=== PATIENT | female | born 1990 | race Two or more races ===

== ENCOUNTER 2017-01-11 14:06 | Emergency (ER) | payer MEDICAID ==
[~2017-01-11] VITALS: Ht 149.9 cm; Wt 49.0 kg
[~2017-01-11 14:06] MED LIST: ALBUTEROL SULF8.5 GM INH; AMOXICILLI200 MG/5 M PO; AZITHROMYCIN250 MG ORAL; CHERATUSSIN AC118 ML PO; IBUPROFEN600 MG ORAL; KEFLEX500 MG ORAL; NITROFURANTOIN100 M2 ORAL; NKM; OCUFLOX5 ML RIGHT EYE
[2017-01-11] MEDS ORDERED: Ketorolac 60mg Inj IM ONE (15:00)
--- NOTE | 2017-01-11 15:00 | Emergency Room Report ---
History of Present Illness General Chief Complaint: Headache Source: Patient Present Illness HPI 26 y/o female c/o URI sxs x 2 days. Assoc sxs include headache, nasal congestion , rhinorrhea w/ post nasal drip, feeling feverish, nausea w/o vomiting, cough and bodyaches. States they've taken 400mg ibuprofen last taken 6 hours ago w/o relief of symptoms. Patient states that he has muscle tension and the upper shoulders but causes pain in the left side of her neck that radiates to the left side of her head and feels better with massage and feels that she stretching it when she turns her head to the right side. Denies any chronic illness, diarrhea, photophobia, phonophobia, nuchal rigidity, CP, SOB, or rashes. Allergies: Coded Allergies: No Known Allergies (Unverified , 06/05/15) Patient History Past Medical History: see triage record Past Surgical History: none Pertinent Family History: none Last Menstrual Period: 12/11/16 Now: No : 1 Para: 1 Immunizations: UTD Reviewed Nursing Documentation: PMH: Agreed, PSxH: Agreed Review of Systems All Other Systems: negative except mentioned in HPI Physical Exam Vital Signs Date Time Temp Pulse Resp B/P Pulse Ox O2 Delivery O2 Flow Rate FiO2 01/11/17 14:30 98.8 96 18 111/74 97 Room Air Sp02 EP Interpretation: reviewed, normal General Appearance: no apparent distress, alert, GCS 15, non-toxic Head: normocephalic, atraumatic Eyes: bilateral eye PERRL, bilateral eye normal inspection ENT: hearing grossly normal, normal pharynx, no angioedema, normal voice, TMs + canals normal, nasal congestion Neck: full range of motion, supple/symm/no masses Respiratory: chest non-tender, lungs clear, normal breath sounds, speaking full sentences Cardiovascular #1: regular rate, rhythm, no edema Gastrointestinal: normal bowel sounds, non tender, soft, non-distended, no guarding, no rebound Rectal: deferred Genitourinary: normal inspection, no CVA tenderness Musculoskeletal: back normal, gait/station normal, normal range of motion, non- tender Neurologic: alert, oriented x3, responsive, motor strength/tone normal, sensory intact, speech normal Psychiatric: judgement/insight normal, memory normal, mood/affect normal, no suicidal/homicidal ideation Skin: normal color, no rash, warm/dry, well hydrated Lymphatic: no adenopathy Medical Decision Making PA Attestation Dr. Mena is my supervising physician with whom patient management has been discussed with. Diagnostic Impression: Primary Impression: Viral syndrome Additional Impression: Tension headache ER Course Pt. presents to the ED c/o of cough and congestion and headache Ddx considered but are not limited to bronchitis, pneumonia, viral upper respiratory tract infection, migraine, subarachnoid hemorrhage, meningitis Vital signs: are WNL, pt. is afebrile H&PE are most consistent with viral upper respiratory tract infection with tension headache ORDERS: none required at this time, the diagnosis is clinical ED INTERVENTIONS: None required at this time. DISCHARGE: At this time pt. is stable for d/c to home. Will provide printed patient care instructions, and any necessary prescriptions. Care plan and follow up instructions have been discussed with the patient prior to discharge. Last Vital Signs Date Time Temp Pulse Resp B/P Pulse Ox O2 Delivery O2 Flow Rate FiO2 01/11/17 14:30 98.8 96 18 111/74 97 Room Air Status: improved Disposition: HOME, SELF-CARE Condition: Improved Scripts Ondansetron Odt* (ZOFRAN ODT*) 4 Mg Tab.rapdis 4 MG ORAL Q6H Y for Nausea & Vomiting, #20 TAB Prov: SABRY,TAMEEM P.A. 01/11/17 Cetirizine Hcl* (ZYRTEC*) 10 Mg Tablet 10 MG ORAL DAILY, #14 TAB 0 Refills Prov: SABRY,TAMEEM P.A. 01/11/17 Fluticasone Propionate (Flonase Allergy Relief) 9.9 Ml [place].susp 2 SPRAYS NS DAILY for 7 Days, #10 ML Prov: SABRY,TAMEEM P.A. 01/11/17 Naproxen* (NAPROXEN*) 500 Mg Tablet 500 MG ORAL TWICE A DAY, #20 TAB Prov: SABRY,TAMEEM P.A. 01/11/17 Patient Instructions: Tension Headache, Viral Respiratory Infection Additional Instructions: Patient advised to use ibuprofen and tylenol as needed. Take as directed. Take medication as directed. Advised patient to use salt water gargle PRN. Advised patient to use chloraseptic as needed for throat pain in addition to APAP Q4H. Patient advised they can take Ibuprofen and Tylenol Q6H together for fever control as well. Educated patient on rhinitis and encouraged patient to use OTC nasal decongestants, nasal irrigation / saline sprays, and use of nasal suction such as NoseFrida. Educated patient on the benefits of the various OTC medications available (ie. H1 blockers, decongestants, nasal steroids, etc.). If sxs worsen or don't improve, please return sooner. Go to the ER if you develop SOB, CP, Rash, photophobia, neck pain, throat swelling occur, go to the ER immediately. Advised patient to go to the ER immediately if you experience a headache that is sudden and becomes severe within a few seconds or minutes, or that could be described as "the worst headache of your life", or if headache is severe and occurs with a fever or stiff neck, occurs with a seizure, personality changes, confusion, or passing out, begins quickly after strenuous exercise or minor injury, or if headache is new and occurs with weakness, numbness, or difficulty seeing. While migraine headaches can sometimes cause these symptoms, you should be evaluated urgently the first time these symptoms appear. Return sooner if sxs worsen or do not improve. CRESCENCIO HERNANDEZ Jan 11, 2017 15:00
[2017-01-11] MEDS ORDERED: FLONASE ALLERG9.9 ML NS (15:03)
[2017-01-11] MEDS ORDERED: NAPROXEN500 M2 ORAL (15:03)
[2017-01-11] MEDS ORDERED: ZOFRAN ODT4 MG ORAL (15:03)
[2017-01-11] MEDS ORDERED: ZYRTEC10 MG ORAL (15:03)
[2017-01-11 15:19] VITALS: BP 114/75
[2017-01-11 15:20] VITALS: BP 111/74
== END 2017-01-11 15:23 | disposition home or self-care (01) ==
LOC: EMR 14:57
DX: B34.9 Viral infection, unspecified (principal); G44.209 Tension-type headache, unspecified, not intractable
CPT/HCPCS: 96372; 99284

== ENCOUNTER 2017-03-30 11:02 | Emergency (ER) | payer MEDICAID ==
[~2017-03-30] VITALS: Ht 149.9 cm; Wt 48.1 kg
[~2017-03-30 11:02] MED LIST changes: +FLONASE ALLERG9.9 ML NS; +NAPROXEN500 M2 ORAL; +ZOFRAN ODT4 MG ORAL; +ZYRTEC10 MG ORAL
[2017-03-30 11:16] VITALS: BP 124/77
--- NOTE | 2017-03-30 12:02 | Diagnostic Imaging Report ---
Indications: Right wrist pain Technique: 3 views of the right wrist. Findings: Comparison: None. No fracture, dislocation, lytic destruction, periosteal reaction, surrounding soft tissue swelling, or other acute changes are demonstrated. No deformity, alignment abnormality, arthritic change, soft tissue calcification, or other chronic changes are demonstrated. IMPRESSION: Negative right wrist series.
[2017-03-30] MEDS ORDERED: IBUPROFEN600 MG ORAL (12:12)
[2017-03-30 12:20] VITALS: BP 124/77
--- NOTE | 2017-03-30 16:38 | Emergency Room Report ---
History of Present Illness General Chief Complaint: Upper Extremity Injury Source: Patient Present Illness HPI The patient is a 26-year-old presenting for right thumb pain which began 3 weeks prior. Pain is described as a 4/10 dull ache and does not radiate from base of thumb. It is worse with movement. Pain does not radiate. She denies any known injury to the area. 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 She denies any numbness or tingling. She denies any other symptoms including N, V, F, chills Allergies: Coded Allergies: No Known Allergies (Unverified , 06/05/15) Patient History Past Medical History: see triage record Pertinent Family History: none Last Menstrual Period: last month Now: No Reviewed Nursing Documentation: PMH: Agreed, PSxH: Agreed Nursing Documentation-PMH Past Medical History: No Stated History Review of Systems All Other Systems: negative except mentioned in HPI Physical Exam Vital Signs Date Time Temp Pulse Resp B/P Pulse Ox O2 Delivery O2 Flow Rate FiO2 03/30/17 11:16 98.1 74 18 124/77 98 Room Air Sp02 EP Interpretation: reviewed, normal General Appearance: no apparent distress, alert, GCS 15, non-toxic Head: normocephalic, atraumatic Eyes: bilateral eye PERRL, bilateral eye normal inspection ENT: hearing grossly normal, normal pharynx, no angioedema, normal voice Musculoskeletal: normal range of motion, swelling - 1+, tender - TTP over the base of the R thumb Neurologic: alert, oriented x3, responsive, motor strength/tone normal, sensory intact, speech normal Psychiatric: judgement/insight normal, memory normal, mood/affect normal, no suicidal/homicidal ideation Skin: normal color, no rash, warm/dry, well hydrated Lymphatic: no adenopathy Procedures Splinting Splinting : Consent: Verbal Location: R hand Pre-Made Type: velcro Splint: thumb spica Pre-Proc Neuro Vasc Exam: normal Post-Proc Neuro Vasc Exam: normal Patient Tolerated: Well Complications: None Medical Decision Making PA Attestation Dr. Hernandez is my supervising physician. Patient management was discussed with my supervising physician Diagnostic Impression: Primary Impression: Sprain of right thumb Qualified Codes: S63.601A - Unspecified sprain of right thumb, initial encounter ER Course The patient is a 26-year-old presenting for right thumb pain which began 3 weeks prior. Ddx considered include but not limited to sprain/strain, fracture, contusion Physical exam: vitals WNL. NAD Right hand: There is tenderness and slight edema to the base of the right thumb. No ecchymosis. Full active range of motion. X-ray of the right hand is unremarkable. Thumb spica is placed. She'll be discharged home with the ER precautions and will follow up with PMD Other X-Ray Diagnostic Results Other X-Ray Diagnostic Results : X-Ray Ordered: R hand Date: March 30, 2017 EP Interpretation: Yes Findings: no fractures, no dislocation, no soft tissue swelling Number of Views: 3 PA Scribe Text I am acting as scribe for my supervising physician. My supervising physician's interpretation of the R hand xrays are there are no fractures, dislocations or soft tissue swelling. Last Vital Signs Date Time Temp Pulse Resp B/P Pulse Ox O2 Delivery O2 Flow Rate FiO2 03/30/17 12:20 98.1 18 124/77 98 Room Air 03/30/17 11:16 74 Status: improved Disposition: HOME, SELF-CARE Condition: Improved Scripts Ibuprofen* (MOTRIN*) 600 Mg Tablet 600 MG ORAL Q6H Y for For Pain, #30 TAB Prov: QUINCY HEREDIA 03/30/17 Patient Instructions: Thumb Sprain Additional Instructions: I discussed my findings with the patient. All questions and concerns have been answered. Treatment and medication compliance have been addressed. I advised the patient that they need to follow up with PMD in 3-5 days. Return to ED if pain remains or worsens, numbness or tingling occurs, new rash is noticed, fever is noticed, or if needed for any reason. Patient verbalized understanding of discharge instructions. QUINCY HEREDIA March 30, 2017 16:38
== END 2017-03-30 12:20 | disposition home or self-care (01) ==
LOC: EMR 12:02
DX: S63.601A Unspecified sprain of right thumb, initial encounter (principal); X50.3XXA Overexertion from repetitive movements, initial encounter; Y93.9 Activity, unspecified; Y99.0 Civilian activity done for income or pay
CPT/HCPCS: 29280; 99283

== ENCOUNTER 2018-07-17 12:13 | Emergency (ER) | payer MEDICAID ==
[~2018-07-17] VITALS: Ht 149.9 cm; Wt 46.7 kg
--- NOTE | 2018-07-17 12:51 | Emergency Room Report ---
History of Present Illness General Chief Complaint: Skin Rash/Abscess Source: Patient Present Illness HPI patient is a 27-year-old female with no significant past medical history here complaining of fever days of pruritic rash on her lower extremities and 1 pruritic and painful warm to touch rash on the right upper extremity after staying over at her 's house. Denies being bit by spiders or any other insects. 3 out of 10 denies fevers/chills denies tingling and numbness. His pain radiation Knee rcro-gvj-ywzqacv pain medication or medication for allergies. Denies SOB, chest pain, dizziness, headache, and all other associates symptoms. Denies anyone else presenting with the same symptoms at home Allergies: Coded Allergies: Pork (Verified Allergy, Unknown, 07/17/18) Patient History Past Medical History: see triage record Past Surgical History: none Last Menstrual Period: 06/25/2018 Reviewed Nursing Documentation: PMH: Agreed; PSxH: Agreed Nursing Documentation-PMH Past Medical History: No Stated History Review of Systems All Other Systems: negative except mentioned in HPI Physical Exam Vital Signs Date Time Temp Pulse Resp B/P (MAP) Pulse Ox O2 Delivery O2 Flow Rate FiO2 07/17/18 12:26 98.3 81 14 97/68 97 Room Air 98.2 Sp02 EP Interpretation: reviewed, normal General Appearance: normal inspection, well appearing Head: normocephalic Eyes: bilateral eye normal inspection, bilateral eye PERRL ENT: normal ENT inspection, hearing grossly normal Neck: normal inspection, full range of motion, supple Respiratory: normal inspection, chest non-tender, lungs clear, no rhonchi, no accessory muscle use, no wheezing Cardiovascular #1: normal inspection, no murmur, no rub Gastrointestinal: normal inspection, soft Rectal: deferred Genitourinary: deferred Musculoskeletal: other - spider bite on right upper extremity and bilateral lower extremity. Bite right upper extremity warm to touch. Neurologic: normal inspection, alert, oriented x3 Psychiatric: normal inspection, judgement/insight normal Skin: rash - Spider bites on bilateral lower extremities and one warm to touch spider bite on right upper extremity Lymphatic: normal inspection, no adenopathy Medical Decision Making PA Attestation All diagnosis and treatment plans were reviewed with my supervising physician Diagnostic Impression: Primary Impression: Spider bite Additional Impression: Skin infection ER Course patient is a 27-year-old female with no significant past medical history here complaining of fever days of pruritic rash on her lower extremities and 1 pruritic and painful warm to touch rash on the right upper extremity after staying over at her 's house. Denies being bit by spiders or any other insects. 3 out of 10 denies fevers/chills denies tingling and numbness. His pain radiation Knee rvef-zer-wjznpgz pain medication or medication for allergies. Denies SOB, chest pain, dizziness, headache, and all other associates symptoms. Denies anyone else presenting with the same symptoms at home Ddx considered but are not limited to spider bite infected, superficial spider bite, allergic reaction Vital signs: are WNL, pt. is afebrile H&PE are most consistent with spider bite infected ORDERS:Keflex, Claritin ED INTERVENTIONS: None required at this time. DISCHARGE: At this time pt. is stable for d/c to home. Will provide printed patient care instructions, and any necessary prescriptions. Care plan and follow up instructions have been discussed with the patient prior to discharge. aavoid exposure to allergen, wash all clothes and cleaned her house Spiders, fever/chills return to emergency room Last Vital Signs Date Time Temp Pulse Resp B/P (MAP) Pulse Ox O2 Delivery O2 Flow Rate FiO2 07/17/18 12:26 98.3 81 14 97/68 97 Room Air 98.2 Disposition: HOME, SELF-CARE Condition: Stable Scripts Hydrocortisone/Aloe Vera 1%* (HYDROCORTISONE-ALOE 1% CREAM*) Y Cr 1 APPLIC TOPIC Q6H PRN for Itching, #30 GM Prov: Basiaelimoghashirinmi,Nahal P.A. 07/17/18 Loratadine (CLARITIN) 10 Mg Capsule 10 MG ORAL DAILY, #30 CAP Prov: Sahelimoghavami,Nahal P.A. 07/17/18 Cephalexin* (KEFLEX*) 500 Mg Capsule 500 MG ORAL EVERY 12 HOURS for 7 Days, #14 CAP 0 Refills Prov: Sahelimoghavami,Nahal P.A. 07/17/18 Referrals: NOT CHOSEN IPA/MD,REFERRING (PCP) Patient Instructions: Rash, Spider Bite, Anwa-rr-Uufd BasiaelimogrichiemiNahal P.A. Jul 17, 2018 12:51
[2018-07-17] MEDS ORDERED: HYDROCORTISONE-30 GM TOPIC (12:52)
[2018-07-17] MEDS ORDERED: CEPHALEXIN500 MG ORAL (12:52)
[2018-07-17] MEDS ORDERED: CLARITIN10 M2 ORAL (12:52)
[2018-07-17 13:08] VITALS: BP 97/68
== END 2018-07-17 13:05 | disposition home or self-care (01) ==
LOC: EMR 12:40
DX: T63.301A Toxic effect of unspecified spider venom, accidental (unintentional), initial encounter (principal); L29.8 Other pruritus; L08.89 Other specified local infections of the skin and subcutaneous tissue; Y92.9 Unspecified place or not applicable
CPT/HCPCS: 99284

== ENCOUNTER 2018-09-17 11:46 | Emergency (ER) | payer MEDICAID ==
[~2018-09-17] VITALS: Ht 149.9 cm; Wt 46.7 kg
[~2018-09-17 11:46] MED LIST changes: +CEPHALEXIN500 MG ORAL; +CLARITIN10 M2 ORAL; +HYDROCORTISONE-30 GM TOPIC
[2018-09-17 12:30] VITALS: BP 107/70
[2018-09-17] MEDS: Phenazopyridine 200mg tab ORAL ONE ×2 (12:34→12:36)
--- NOTE | 2018-09-17 12:56 | Emergency Room Report ---
History of Present Illness General Chief Complaint: Female Urogenital Problems Source: Patient Present Illness HPI 28-year-old female presents to the emergency department complaining of 8/10 in severity dysuria with urinary frequency 1 week. Patient reports history of frequent UTIs and wants to be evaluated in case she has one. Denies recent abx use. Patient denies hematuria she denies low back pain, fevers, chills, abdominal pain, nausea, vomiting or . Patient denies itching or rash in the genital area she denies lesions or swollen tender lymph nodes. Allergies: Coded Allergies: Pork (Verified Allergy, Unknown, 07/17/18) Patient History Past Medical History: see triage record Past Surgical History: none Last Menstrual Period: 08/31/18 Now: No Immunizations: UTD Reviewed Nursing Documentation: PMH: Agreed; PSxH: Agreed Nursing Documentation-PMH Past Medical History: No Stated History Review of Systems All Other Systems: negative except mentioned in HPI Physical Exam Vital Signs Date Time Temp Pulse Resp B/P (MAP) Pulse Ox O2 Delivery O2 Flow Rate FiO2 09/17/18 12:03 97.9 82 18 107/70 99 Room Air Sp02 EP Interpretation: reviewed, normal General Appearance: no apparent distress, alert, GCS 15, non-toxic Head: normocephalic, atraumatic Eyes: bilateral eye normal inspection, bilateral eye PERRL ENT: hearing grossly normal, normal voice Neck: full range of motion Respiratory: lungs clear, normal breath sounds, speaking full sentences Cardiovascular #1: regular rate, rhythm Gastrointestinal: non tender, soft Genitourinary: normal inspection, no CVA tenderness Musculoskeletal: back normal, gait/station normal, normal range of motion, non- tender Neurologic: alert, oriented x3, responsive, motor strength/tone normal, sensory intact, speech normal, grossly normal Psychiatric: judgement/insight normal Skin: normal color, no rash, warm/dry, well hydrated Lymphatic: no adenopathy Medical Decision Making PA Attestation Dr. Ram is my supervising Physician whom patient management has been discussed with. Diagnostic Impression: Primary Impression: Dysuria ER Course 28-year-old female presents to the emergency department complaining of 8/10 in severity dysuria with urinary frequency 1 week. Patient reports history of frequent UTIs and wants to be evaluated in case she has one. Denies recent abx use. Patient denies hematuria she denies low back pain, fevers, chills, abdominal pain, nausea, vomiting or . Patient denies itching or rash in the genital area she denies lesions or swollen tender lymph nodes. Ddx considered but are not limited to UTi , Pyelo, STI, Stone, Cystitis Vital signs: are WNL, pt. is afebrile H&PE are most consistent with UTI ORDERS: - UA labs are attached - few bacteria and squamous cells, no elevation in inflammatory markers, negative nitrite. ED INTERVENTIONS: -Pyridium PO - pt. educated that this will cause color change to the urine. Discussed with this patient the results of her urinalysis and that I feel it is not automobile rental representative of a infection at this time and is more consistent with some contamination . I discussed with her that this will be sent for culture and if needed and will contact her if she requires antibiotic treatment. DISCHARGE: At this time pt. is stable for d/c to home. Will provide printed patient care instructions, and any necessary prescriptions. Care plan and follow up instructions have been discussed with the patient prior to discharge. Labs Test 09/17/18 12:05 Urine Color Pale yellow Urine Appearance Clear Urine pH 7 (4.5-8.0) Urine Specific [place] 1.005 (1.005-1.035) Urine Protein Negative (NEGATIVE) Urine Glucose (UA) Negative (NEGATIVE) Urine Ketones Negative (NEGATIVE) Urine Blood Negative (NEGATIVE) Urine Nitrite Negative (NEGATIVE) Urine Bilirubin Negative (NEGATIVE) Urine Urobilinogen Normal MG/DL (0.0-1.0) Urine Leukocyte Esterase 2+ (NEGATIVE) Urine RBC 0-2 /HPF (0 - 2) Urine WBC 2-4 /HPF (0 - 2) Urine Squamous Epithelial Cells Few /LPF (NONE/OCC) Urine Bacteria Few /HPF (NONE) Last Vital Signs Date Time Temp Pulse Resp B/P (MAP) Pulse Ox O2 Delivery O2 Flow Rate FiO2 09/17/18 12:30 97.9 82 18 107/70 99 Room Air Disposition: HOME, SELF-CARE Condition: Stable Scripts Phenazopyridine Hcl* (PYRIDIUM*) 200 Mg Tablet 200 MG ORAL THREE TIMES A DAY, #9 TAB 0 Refills Prov: Alondra Doran 09/17/18 Referrals: NOT CHOSEN IPA/MD,REFERRING (PCP) Patient Instructions: Dysuria Additional Instructions: Take medications as directed. Follow up with a Primary Care Provider in 3-5 days, even if your symptoms have resolved. --Please review list of primary care clinics, if you do not already have a primary care provider Return sooner to ED if new symptoms occur, or current symptoms become worse. - Please note that this Emergency Department Report was dictated using [employer] tender technology software, occasionally this can lead to erroneous entry secondary to interpretation by the dictation equipment. Alondra Doran Sep 17, 2018 12:56
[2018-09-17 13:08] LABS: APPEARANCE,URINE CLEAR; BILIRUBIN, URINE NEGATIVE (NEGATIVE); COLOR,URINE PALE YELLOW; GLUCOSE, URINE (UA) NEGATIVE (NEGATIVE); KETONES,URINE NEGATIVE (NEGATIVE); LEUKOCYTE ESTERASE ,URINE 2+ (NEGATIVE); NITRITE,URINE NEGATIVE (NEGATIVE); PH,URINE 7 (4.5-8.0); PROTEIN,URINE NEGATIVE (NEGATIVE); UROBILINOGEN,URINE NORMAL MG/DL (0.0-1.0)
[2018-09-17] MEDS ORDERED: PHENAZOPYRIDIN200 MG ORAL (13:24)
[2018-09-17 13:27] VITALS: BP 107/70
== END 2018-09-17 13:28 | disposition home or self-care (01) ==
LOC: EMR 12:15
DX: R30.0 Dysuria (principal); R35.0 Frequency of micturition; Z87.440 Personal history of urinary (tract) infections
CPT/HCPCS: 81003; 99283

== ENCOUNTER 2019-03-26 16:34 | Emergency (ER) | payer MEDICAID ==
[~2019-03-26] VITALS: Ht 149.9 cm; Wt 45.4 kg
[~2019-03-26 16:34] MED LIST changes: +PHENAZOPYRIDIN200 MG ORAL
[2019-03-26 17:00] VITALS: BP 113/73
--- NOTE | 2019-03-26 17:20 | Emergency Room Report ---
History of Present Illness General Chief Complaint: Flu Like Symptoms Source: Patient Present Illness HPI Patient presents with 1 week of upper respiratory symptoms. Is worse over the last 48 hours. She is herself wheezing. She has a sore throat, fevers and a cough. The cough is nonproductive. Sore throat is somewhat improving. She has been taking Tylenol and Motrin. She denies any chills. No rashes. No nausea, vomiting or diarrhea. Last period was last week and normal for her. No dysuria. She rates pain in her body as 7/10. Aching. Her daughter is being seen for viral upper respiratory illness with some bronchospasm. She received an influenza vaccination. Allergies: Coded Allergies: Pork (Verified Allergy, Unknown, 07/17/18) Patient History Past Medical History: see triage record Social History: Denies: smoking Social History Narrative Works in retail Last Menstrual Period: 03/20/2019 Reviewed Nursing Documentation: PMH: Agreed; PSxH: Agreed Nursing Documentation-PMH Past Medical History: No Stated History Review of Systems All Other Systems: negative except mentioned in HPI Physical Exam Vital Signs Date Time Temp Pulse Resp B/P (MAP) Pulse Ox O2 Delivery O2 Flow Rate FiO2 03/26/19 16:53 101.8 95 16 96 Room Air Sp02 EP Interpretation: reviewed, normal General Appearance: well appearing, no apparent distress, GCS 15 Head: normocephalic, atraumatic Eyes: bilateral eye normal inspection, bilateral eye PERRL ENT: hearing grossly normal, normal pharynx, normal voice, TMs + canals normal , moist mucus membranes Neck: full range of motion, supple, no meningismus Respiratory: lungs clear, normal breath sounds, no respiratory distress, speaking full sentences Cardiovascular #1: regular rate, rhythm Cardiovascular #2: 2+ radial (R) Gastrointestinal: normal inspection Genitourinary: no CVA tenderness Musculoskeletal: no calf tenderness Neurologic: alert, oriented x3, normal gait, grossly normal Psychiatric: mood/affect normal Skin: no rash Medical Decision Making Diagnostic Impression: Primary Impression: Upper respiratory infection Qualified Codes: J06.9 - Acute upper respiratory infection, unspecified ER Course Patient presents with upper respiratory symptoms and fever. Differential includes viral upper respiratory infection, bronchospasm, bacterial, amongst others. She received influenza vaccination and this is less likely. Her daughter is ill with what appears to be a viral upper respiratory infection. The patient reports wheezing. She does not appear toxic. Tylenol was given as she is febrile at this time. Discussed antibiotics with patient. She prefer not to take them at this time. Patient stable for outpatient observation and treatment. Last Vital Signs Date Time Temp Pulse Resp B/P (MAP) Pulse Ox O2 Delivery O2 Flow Rate FiO2 03/26/19 17:50 99.0 95 16 113/73 96 Room Air Status: improved Disposition: HOME, SELF-CARE Condition: Improved Scripts Chlorpheniramine Maleate (CHLOR-TRIMETON) 4 Mg Tablet 4 MG PO Q6HR for congestion, #10 TAB Prov: Dyllan Ram MD 03/26/19 Ibuprofen* (MOTRIN*) 600 Mg Tablet 600 MG ORAL Q6H PRN for For Pain, #16 TAB Prov: Dyllan Ram MD 03/26/19 Albuterol Sulfate* (ALBUTEROL SULFATE MDI*) 8.5 Gm Hfa.aer.ad 2 PUFF INH Q6H, #1 EA 0 Refills Prov: Dyllan Ram MD 03/26/19 Dyllan Ram MD March 26, 2019 17:20
[2019-03-26] MEDS ORDERED: CHLOR-TRIMETON4 MG PO (17:23)
[2019-03-26] MEDS ORDERED: IBUPROFEN600 MG ORAL (17:23)
[2019-03-26] MEDS ORDERED: ALBUTEROL SULF8.5 GM INH (17:23)
[2019-03-26] MEDS ORDERED: Acetaminophen 500mg (ES) tab ORAL ONE (17:30)
== END 2019-03-26 18:00 | disposition home or self-care (01) ==
LOC: EMR 17:54
DX: J06.9 Acute upper respiratory infection, unspecified (principal); Z91.018 Allergy to other foods
CPT/HCPCS: 99282

== ENCOUNTER 2019-08-11 18:07 | Emergency (ER) | payer MEDICAID ==
[~2019-08-11] VITALS: Ht 149.9 cm; Wt 54.4 kg
[~2019-08-11 18:07] MED LIST changes: +CHLOR-TRIMETON4 MG PO
--- NOTE | 2019-08-11 18:10 | NUR ---
ED Nurse Note: Patient drove self to ER await docvtor review. A&O X4. No complaints of pain.
[2019-08-11 18:11] VITALS: BP 109/72
--- NOTE | 2019-08-11 18:15 | NUR ---
ER DISCHARGE NOTE: Patient is cleared to be discharged per ERMD, pt is aox4, on room air, with stable vital signs. pt was given dc and prescription instructions, pt was able to verbalize understanding, pt id band removed without complications. pt is able to ambulate with steady gait. pt took all belongings.
--- NOTE | 2019-08-11 18:35 | Emergency Room Report ---
History of Present Illness General Chief Complaint: Skin Rash/Abscess Source: Patient Present Illness HPI 28-year-old female with no significant past medical history here complaining of a dry and burning lesion of the corner of his right side of mouth x2 weeks. Denies having this lesion in the past. Denies any history of cold sores. Denies having any tingling sensation prior to the appearance of the lesion. Patient reports that she has been stressed lately and has been eating a lot of spicy food however denies any sun exposure. Denies fever and chills, sores inside her mouth, cough and congestion. Denies fever and chills. Macular dry with minimal bleeding lesion noted in the corner of right mouth. Patient reports that she has been applying lots of natural oil to the affected area with minimal relief Allergies: Coded Allergies: Pork (Verified Allergy, Unknown, 07/17/18) Patient History Past Medical History: see triage record Past Surgical History: unable to obtain Pertinent Family History: none Last Menstrual Period: 07/28/2019 Now: No Immunizations: UTD Reviewed Nursing Documentation: PMH: Agreed; PSxH: Agreed Nursing Documentation-PMH Past Medical History: No Stated History Review of Systems All Other Systems: negative except mentioned in HPI Physical Exam Vital Signs Date Time Temp Pulse Resp B/P (MAP) Pulse Ox O2 Delivery O2 Flow Rate FiO2 08/11/19 18:11 98.2 72 15 109/72 (84) 96 Room Air Sp02 EP Interpretation: reviewed, normal General Appearance: no apparent distress, alert, GCS 15, non-toxic Head: normocephalic, atraumatic Eyes: bilateral eye normal inspection, bilateral eye PERRL ENT: hearing grossly normal, normal pharynx, no angioedema, normal voice Neck: full range of motion, supple/symm/no masses Respiratory: chest non-tender, lungs clear, normal breath sounds, speaking full sentences Cardiovascular #1: regular rate, rhythm, no edema Gastrointestinal: normal bowel sounds, non tender, soft, non-distended, no guarding, no rebound Genitourinary: normal inspection, no CVA tenderness Musculoskeletal: back normal, gait/station normal, normal range of motion, non- tender Neurologic: alert, oriented x3, responsive, motor strength/tone normal, sensory intact, speech normal Psychiatric: judgement/insight normal, memory normal, mood/affect normal, no suicidal/homicidal ideation Skin: rash - Try macular with minimal bleeding, dry, no sign of infx Lymphatic: no adenopathy Medical Decision Making PA Attestation Diagnosis and treatment plans were reviewed and discussed with my supervising physician Dr. Yeh Diagnostic Impression: Primary Impression: Cold sore Additional Impression: Facial eczema ER Course 28-year-old female with no significant past medical history here complaining of a dry and burning lesion of the corner of his right side of mouth x2 weeks. Denies having this lesion in the past. Denies any history of cold sores. Denies having any tingling sensation prior to the appearance of the lesion. Patient reports that she has been stressed lately and has been eating a lot of spicy food however denies any sun exposure. Denies fever and chills, sores inside her mouth, cough and congestion. Denies fever and chills. Macular dry with minimal bleeding lesion noted in the corner of right mouth. Patient reports that she has been applying lots of natural oil to the affected area with minimal relief Ddx considered but are not limited to: Eczema, scabies, lice, Vital signs: are WNL, pt. is afebrile H&PE are most consistent with: Facial eczema, possible cold sore as it has already been there for 2 weeks ORDERS: Acyclovir, triamcinolone cream ED INTERVENTIONS: None required at this time. DISCHARGE: At this time pt. is stable for d/c to home. Will provide printed patient care instructions, and any necessary prescriptions. Care plan and follow up instructions have been discussed with the patient prior to discharge. Patient agrees to take the above tx, and to follow-up with her primary care, also advised her to get a referral to head boys tennis coach if no improvement Last Vital Signs Date Time Temp Pulse Resp B/P (MAP) Pulse Ox O2 Delivery O2 Flow Rate FiO2 08/11/19 18:11 98.2 72 15 109/72 (84) 96 Room Air Disposition: HOME, SELF-CARE Condition: Stable Scripts Triamcinolone Acet (Triamcinolone Acetonide) 15 Gm Cream..g. 2 GM APPLIC TID, #15 GM .1% Prov: Gerardo Mckoy 08/11/19 Acyclovir* (ACYCLOVIR*) 400 Mg Tablet 400 MG ORAL TID for 5 Days, #15 TAB Prov: Gerardo Mckoy 08/11/19 Patient Instructions: Cold Sore, [id number]-vl-Lycm, Eczema Additional Instructions: Take medication as directed follow-up with your primary care provider for referral to head boys tennis coach if symptoms do not improve avoid spicy food, sun exposure in the face and wearing make-up. Gerardo Mckoy Aug 11, 2019 18:34
[2019-08-11] MEDS ORDERED: KENALOG 0.5% CR15 GM APPLIC (18:36)
[2019-08-11] MEDS ORDERED: ACYCLOVIR400 MG ORAL (18:36)
== END 2019-08-11 18:45 | disposition home or self-care (01) ==
LOC: EMR 18:36
DX: B00.1 Herpesviral vesicular dermatitis (principal); L30.9 Dermatitis, unspecified; Z91.018 Allergy to other foods
CPT/HCPCS: 99282